=== PATIENT | male | born 1945 | race Caucasian/White ===

== ENCOUNTER 2018-10-21 06:54 | Day surgery (SDC) | payer MEDICARE, OTHER ==
[~2018-10-21] VITALS: Ht 185.4 cm; Wt 72.0 kg
[~2018-10-21 06:54] MED LIST: ACET325T14 PO; ASPI-498 PO; BUPIVACAINE/PF-EPI 0.5% 1:200K ONE; DIPH25CA61 PO; HEPARIN 1,000 UNITS/ML, 10ML ONE; HYDR-3240 PO; LOVA40TA2 PO; OMEP20TA9 PO; ONDA4TAB7 PO
[2018-10-21] MEDS ORDERED: LACTATED RINGERS 1,000 ML IV SCH (07:42)
[2018-10-21] MEDS ORDERED: LIDOCAINE-MPF 1%, 2ML INFIL ONE (08:00)
[2018-10-21] MEDS ORDERED: SUCCINYLCHOLINE 20 MG/ML, 10ML ONE (08:30)
[2018-10-21] MEDS ORDERED: ROCURONIUM 10MG/ML,5ML ONE (08:30)
[2018-10-21] MEDS ORDERED: FENTANYL PF 100 MCG/2ML ONE (08:30)
[2018-10-21] MEDS ORDERED: MIDAZOLAM 1 MG/ML, 2ML ONE (08:30)
[2018-10-21] MEDS ORDERED: ONDANSETRON 2MG/ML, 2ML ONE (09:12)
[2018-10-21] MEDS ORDERED: CEFAZOLIN 1,000 MG ONE (09:12)
[2018-10-21] MEDS ORDERED: PROPOFOL 10 MG/ML, 20ML ONE (09:12)
[2018-10-21] MEDS ORDERED: LABETALOL 5MG/ML, 20ML IV PRN (09:30)
[2018-10-21] MEDS ORDERED: MEPERIDINE/PF 25MG/0.5ML IVPush PRN (09:30)
[2018-10-21] MEDS ORDERED: LORazepam 2 MG/ML, 1ML IVPush PRN (09:30)
[2018-10-21] MEDS ORDERED: FENTANYL PF 100 MCG/2ML IV PRN (09:30)
[2018-10-21] MEDS ORDERED: OXYcodone 5 MG/5 ML ORAL.SOL UDC PO PRN (09:30)
[2018-10-21] MEDS ORDERED: METOCLOPRAMIDE 5 MG/ML, 2ML IV PRN (09:30)
[2018-10-21] MEDS ORDERED: HYDROmorphone 2 MG/ML, 1ML IVPush PRN (09:30)
[2018-10-21] MEDS ORDERED: OXYcodone 5 MG/5 ML ORAL.SOL UDC ONE (10:05)
== END 2018-10-21 11:35 | disposition home or self-care (01) ==
LOC: OUT 06:54 → MERGE 06:54 → OUT 11:35
PROVIDERS: ATTEND Surgery
DX: C85.90 Non-Hodgkin lymphoma, unspecified, unspecified site (principal); K21.9 Gastro-esophageal reflux disease without esophagitis; E78.00 Pure hypercholesterolemia, unspecified; F32.9 Major depressive disorder, single episode, unspecified; I25.2 Old myocardial infarction; E78.5 Hyperlipidemia, unspecified; Z98.890 Other specified postprocedural states; Z72.89 Other problems related to lifestyle; Z87.891 Personal history of nicotine dependence
CPT/HCPCS: 36561; 77001; C1788; J0330; J0690; J1644; J2250; J2405; J2704; J3010

== ENCOUNTER → 2018-10-22 | Outpatient (CLI) | payer MEDICARE, OTHER ==
[~2018-10-22] MED LIST changes: -BUPIVACAINE/PF-EPI 0.5% 1:200K ONE; -HEPARIN 1,000 UNITS/ML, 10ML ONE
== END | disposition home or self-care (01) ==
LOC: PETCFH 12:23
PROVIDERS: ATTEND Specialist
DX: R16.1 Splenomegaly, not elsewhere classified (principal); R91.8 Other nonspecific abnormal finding of lung field; C88.0 Waldenstrom macroglobulinemia
CPT/HCPCS: 78815; A9552

== ENCOUNTER → 2019-02-25 | Outpatient (CLI) | payer MEDICARE, OTHER | END | disposition home or self-care (01) | LOC: PETCFH 12:23 | PROVIDERS: ATTEND Specialist | DX: C88.0 Waldenstrom macroglobulinemia (principal); R59.0 Localized enlarged lymph nodes; R91.1 Solitary pulmonary nodule; M19.90 Unspecified osteoarthritis, unspecified site; N28.1 Cyst of kidney, acquired; K80.20 Calculus of gallbladder without cholecystitis without obstruction | CPT/HCPCS: 78815; A9552 ==

== ENCOUNTER 2019-04-10 10:25 | Outpatient (CLI) | payer MEDICARE, OTHER | END 2019-04-10 23:59 | disposition home or self-care (01) | LOC: PETCFH 10:25 | PROVIDERS: ATTEND Specialist | DX: C88.0 Waldenstrom macroglobulinemia (principal); J43.9 Emphysema, unspecified; N28.1 Cyst of kidney, acquired; K80.20 Calculus of gallbladder without cholecystitis without obstruction; N28.89 Other specified disorders of kidney and ureter; R91.1 Solitary pulmonary nodule | CPT/HCPCS: 78815; A9552 ==

== ENCOUNTER 2019-04-21 09:13 | Emergency (ER) | payer MEDICARE, OTHER ==
[~2019-04-21] VITALS: Ht 185.4 cm; Wt 68.5 kg
--- NOTE | 2019-04-21 09:33 | NUR ---
TO [facility] FROM LOBBY
[2019-04-21 09:34] LABS: BASOPHILS # (AUTO) 0.03 x10^3/uL (0-0.1); BASOPHILS % (AUTO) 1 % (0-1); EOSINOPHILS # (AUTO) 0.15 x10^3/uL (0-0.4); EOSINOPHILS % (AUTO) 3 % (1-7); LYMPHOCYTES # (AUTO) 0.54 x10^3/uL (1-3.4); LYMPHOCYTES % (AUTO) 10 % (22-44); MD NO; MEAN CORPUSCULAR HEMOGLOBIN 31.6 pg (27.5-34.5); MEAN CORPUSCULAR HGB CONC 33.1 g/dL (33.2-36.2); MEAN CORPUSCULAR VOLUME 95.4 fL (81-97); MEAN PLATELET VOLUME 8.4 fL (7.4-10.4); MONOCYTES # (AUTO) 0.35 x10^3/uL (0.2-0.8); MONOCYTES % (AUTO) 6 % (2-9); NEUTROPHILS # (AUTO) 4.44 x10^3/uL (1.8-6.8); NEUTROPHILS % (AUTO) 81 % (42-75); PLATELET COUNT 240 x10^3/uL (130-400); RED BLOOD COUNT 4.17 x10^6/uL (4.38-5.82); RED CELL DISTRIBUTION WIDTH 15.5 % (9.4-14.8)
[2019-04-21 09:45] LABS: ANION GAP 5 mmol/L (5-15); CALCIUM 9.5 mg/dL (8.5-10.1); CHLORIDE 108 mmol/L (98-107)
[2019-04-21 09:49] LABS: ALANINE AMINOTRANSFERASE 17 U/L (12-78); ALKALINE PHOSPHATASE 89 U/L (45-117); BILIRUBIN,TOTAL 1.3 mg/dL (0.2-1.0); TOTAL PROTEIN 7.8 g/dL (6.4-8.2)
[2019-04-21] MEDS ORDERED: HYDROmorphone 2 MG/ML, 1ML ONE (10:18)
[2019-04-21] MEDS ORDERED: ONDANSETRON 2MG/ML, 2ML ONE (10:18)
[2019-04-21] MEDS ORDERED: HYDROmorphone 1 MG/ML, 1ML INJ IV ONE (10:30)
[2019-04-21] MEDS ORDERED: ONDANSETRON 2MG/ML, 2ML IVPush ONE (10:30)
--- NOTE | 2019-04-21 11:35 | NUR ---
PT DENIES ABILITY TO PRODUCE UA AT THIS TIME. DR ANAYA TO BEDSIDE
[2019-04-21] MEDS ORDERED: HYDROcodone/APAP 10/325 MG TABLET ONE (11:44)
[2019-04-21 11:50] VITALS: BP 126/69
[2019-04-21] MEDS ORDERED: HYDROcodone/APAP 10/325 MG TABLET PO ONE (12:00)
== END 2019-04-21 12:08 | disposition home or self-care (01) ==
LOC: ED 10:38
DX: K86.9 Disease of pancreas, unspecified (principal); Z85.72 Personal history of non-Hodgkin lymphomas
CPT/HCPCS: 36415; 74021; 80053; 83690; 85025; 96374; 99284; J1170

== ENCOUNTER 2019-05-09 12:27 | Emergency (ER) | payer MEDICARE, OTHER ==
[~2019-05-09] VITALS: Ht 185.4 cm; Wt 64.0 kg
[2019-05-09 13:19] LABS: BASOPHILS # (AUTO) 0.02 x10^3/uL (0-0.1); BASOPHILS % (AUTO) 1 % (0-1); EOSINOPHILS # (AUTO) 0.11 x10^3/uL (0-0.4); EOSINOPHILS % (AUTO) 3 % (1-7); LYMPHOCYTES # (AUTO) 0.35 x10^3/uL (1-3.4); LYMPHOCYTES % (AUTO) 9 % (22-44); MD NO; MEAN CORPUSCULAR HEMOGLOBIN 31.7 pg (27.5-34.5); MEAN CORPUSCULAR VOLUME 96.2 fL (81-97); MEAN PLATELET VOLUME 8.8 fL (7.4-10.4); MONOCYTES # (AUTO) 0.32 x10^3/uL (0.2-0.8); MONOCYTES % (AUTO) 8 % (2-9); NEUTROPHILS # (AUTO) 3.25 x10^3/uL (1.8-6.8); NEUTROPHILS % (AUTO) 80 % (42-75); PLATELET COUNT 155 x10^3/uL (130-400); RED BLOOD COUNT 4.01 x10^6/uL (4.38-5.82); RED CELL DISTRIBUTION WIDTH 15.3 % (9.4-14.8)
[2019-05-09 13:31] LABS: ALANINE AMINOTRANSFERASE 14 U/L (12-78); ALBUMIN 3.6 g/dL (3.4-5.0); ANION GAP 8 mmol/L (5-15); CALCIUM 9.2 mg/dL (8.5-10.1); CHLORIDE 104 mmol/L (98-107); CREATININE 0.81 mg/dL (0.7-1.3)
[2019-05-09 13:33] LABS: ALKALINE PHOSPHATASE 81 U/L (45-117); BILIRUBIN,TOTAL 0.6 mg/dL (0.2-1.0); TOTAL PROTEIN 7.1 g/dL (6.4-8.2)
--- NOTE | 2019-05-09 14:01 | NUR ---
TO ROOM FROM LOBBY. NAD.
--- NOTE | 2019-05-09 14:05 | NUR ---
patient up to restroom to void ambulated w/out difficulty urine sample obtained-sent to lab
[2019-05-09] MEDS ORDERED: OXYcodone IR 5MG TABLET PO ONE ×2 (14:30→16:30)
[2019-05-09] MEDS ORDERED: HYDROmorphone 2 MG/ML, 1ML ONE ×2 (14:54→17:05)
[2019-05-09 14:56] LABS: MICROSCOPIC NOT IND
--- NOTE | 2019-05-09 14:56 | NUR ---
medicated per emar for epigastric pain radiating to back at 8/10 at bedside/placed on pox/ to monitor closely
[2019-05-09] MEDS ORDERED: HYDROmorphone 2 MG/ML, 1ML IV ONE ×2 (15:00→17:30)
--- NOTE | 2019-05-09 15:01 | NUR ---
to ct scan
[2019-05-09 15:04] LABS: CULTURE INDICATED? NO
[2019-05-09] MEDS ORDERED: OMNIPAQUE 350 MG/ML, 100ML BOTTLE ONE (15:16)
--- NOTE | 2019-05-09 15:26 | NUR ---
Patient back from ct scan, report pain medication reduced epigastric pain to 5/10 updated on estimated poc
--- NOTE | 2019-05-09 16:00 | NUR ---
With re-assessmentpatient reports pain worsening now 5-05/14 describes as sharp/dull in same area- to discuss further medication with provider vitals updated-wnl at bedside Patient updated with estimated poc
[2019-05-09] MEDS ORDERED: OXYC-432 PO (16:05)
--- NOTE | 2019-05-09 16:16 | NUR ---
food writer made provider aware than patient taking 3750mg of tylenol/day (percocet dosing)- to clarify with precribing md
[2019-05-09] MEDS ORDERED: OXYcodone IR 5MG TABLET ONE (16:27)
--- NOTE | 2019-05-09 16:44 | NUR ---
medicated per emar for epigastric pain at 07/15 updated on estimated poc
--- NOTE | 2019-05-09 17:23 | NUR ---
remedicated per emar for pain at 07/15 provider to bedside explaining findings/dispo plan
[2019-05-09 18:47] VITALS: BP 122/79
[2019-05-13] MEDS ORDERED: OXYC20TA2 PO (11:02)
== END 2019-05-09 18:49 | disposition home or self-care (01) ==
LOC: ED 14:07
DX: I71.4 Abdominal aortic aneurysm, without rupture (principal); K86.9 Disease of pancreas, unspecified; R59.1 Generalized enlarged lymph nodes; I82.502 Chronic embolism and thrombosis of unspecified deep veins of left lower extremity
CPT/HCPCS: 36415; 74177; 80053; 81003; 83690; 85025; 96374; 96376; 99284; J1170; Q9967

== ENCOUNTER 2019-05-15 07:07 | Day surgery (SDC) | payer MEDICARE, OTHER ==
[~2019-05-15] VITALS: Ht 182.9 cm; Wt 63.0 kg
[~2019-05-15 07:07] MED LIST changes: +OXYC-432 PO; +OXYC20TA2 PO
[2019-05-15] MEDS ORDERED: LACTATED RINGERS 1,000 ML IV SCH (07:18)
[2019-05-15 07:31] VITALS: BP 120/72
[2019-05-15] MEDS ORDERED: CHLORHEXIDINE 15 ML UDC ONE (08:09)
[2019-05-15] MEDS ORDERED: FENTANYL PF 100 MCG/2ML ONE ×2 (08:24→09:06)
[2019-05-15] MEDS ORDERED: PROPOFOL 10 MG/ML, 20ML ONE ×2 (08:44→09:11)
[2019-05-15] MEDS ORDERED: MEPERIDINE/PF 25MG/0.5ML IVPush PRN (09:00)
[2019-05-15] MEDS ORDERED: ONDANSETRON ODT 8 MG PO PRN (09:00)
[2019-05-15] MEDS ORDERED: hydrALAzine 20 MG/ML, 1ML IV PRN (09:00)
[2019-05-15] MEDS ORDERED: FENTANYL PF 100 MCG/2ML IV PRN (09:00)
[2019-05-15] MEDS ORDERED: ONDANSETRON 2MG/ML, 2ML IV PRN (09:00)
[2019-05-15] MEDS ORDERED: LABETALOL 5MG/ML, 20ML IV PRN (09:00)
[2019-05-15] MEDS ORDERED: PIPERACILLIN/TAZO/PMX 3.375GM 50 ML ONE (09:10)
[2019-05-15] MEDS ORDERED: MORPHINE SULFATE 4 MG/ML, 1ML ONE ×2 (10:00→10:30)
[2019-05-15] MEDS ORDERED: OXYcodone 5 MG/5 ML ORAL.SOL UDC ONE ×2 (10:00→10:39)
[2019-05-15] MEDS: OXYcodone 5 MG/5 ML ORAL.SOL UDC PO PRN ×2 (10:01→10:41)
[2019-05-15] MEDS: MORPHINE SULFATE 4 MG/ML, 1ML IVPush PRN ×4 (10:03→10:36)
[2019-05-15] MEDS ORDERED: HYDROmorphone 2 MG/ML, 1ML ONE ×2 (10:42→11:35)
[2019-05-15] MEDS: HYDROmorphone 2 MG/ML, 1ML IVPush PRN ×7 (10:44→11:55)
== END 2019-05-15 13:00 | disposition home or self-care (01) ==
LOC: OUT 07:07
PROVIDERS: ATTEND Internal Medicine Gastroenterology
DX: C25.0 Malignant neoplasm of head of pancreas (principal); C77.2 Secondary and unspecified malignant neoplasm of intra-abdominal lymph nodes; K29.80 Duodenitis without bleeding; K21.9 Gastro-esophageal reflux disease without esophagitis; E78.5 Hyperlipidemia, unspecified; I25.10 Atherosclerotic heart disease of native coronary artery without angina pectoris; I25.2 Old myocardial infarction; Z79.82 Long term (current) use of aspirin; Z79.899 Other long term (current) drug therapy; Z72.89 Other problems related to lifestyle; Z87.891 Personal history of nicotine dependence
CPT/HCPCS: 43239; 43242; 74018; 88172; 88173; 88177; 88305; 88307; 93005; J1170; J2270; J2543; J2704; J3010; J7120

== ENCOUNTER 2019-05-30 15:25 | Inpatient (IN) | payer MEDICARE, OTHER ==
[~2019-05-30] VITALS: Ht 185.4 cm; Wt 58.4 kg
--- NOTE | 2019-05-30 15:50 | NUR ---
TO ROOM FROM LOBBY. NAD.
[2019-05-30] MEDS ORDERED: SODIUM CHLORIDE 0.9% 1,000 ML IV ONE (16:19)
[2019-05-30] MEDS ORDERED: ONDANSETRON 2MG/ML, 2ML ONE (16:20)
[2019-05-30] MEDS ORDERED: MORPHINE SULFATE 4 MG/ML, 1ML ONE ×2 (16:21→16:36)
[2019-05-30] MEDS: MORPHINE SULFATE 4 MG/ML, 1ML IVPush PRN ×2 (16:25→16:44)
[2019-05-30] MEDS ORDERED: ONDANSETRON 2MG/ML, 2ML IVPush ONE (16:30)
[2019-05-30] MEDS ORDERED: SODIUM CHLORIDE 0.9% 1,000ML IVBOLUS ONE (16:30)
[2019-05-30] MEDS ORDERED: SODIUM CHLORIDE FLUSH 10ML SYR IVF ONE (16:30)
[2019-05-30 16:37] LABS: MEAN CORPUSCULAR HEMOGLOBIN 30.7 pg (27.5-34.5); MEAN CORPUSCULAR VOLUME 95.7 fL (81-97); MEAN PLATELET VOLUME 7.5 fL (7.4-10.4); PLATELET COUNT 404 x10^3/uL (130-400); RED BLOOD COUNT 3.78 x10^6/uL (4.38-5.82); RED CELL DISTRIBUTION WIDTH 14.9 % (9.4-14.8)
[2019-05-30 16:49] LABS: ALANINE AMINOTRANSFERASE 26 U/L (12-78); ALBUMIN 2.9 g/dL (3.4-5.0); ANION GAP 6 mmol/L (5-15); CALCIUM 8.6 mg/dL (8.5-10.1); CHLORIDE 100 mmol/L (98-107); CREATININE 0.73 mg/dL (0.7-1.3)
[2019-05-30 16:51] LABS: ALKALINE PHOSPHATASE 186 U/L (45-117); BILIRUBIN,TOTAL 0.7 mg/dL (0.2-1.0); TOTAL PROTEIN 6.6 g/dL (6.4-8.2)
[2019-05-30 17:00] LABS: ACETONE, SERUM Negative (Negative)
[2019-05-30 17:23] LABS: MD YES
[2019-05-30 17:26] LABS: BAND#(MANUAL) 1.77 x10^3/uL; BANDS%(MANUAL) 29 % (0-7); LYMPH#(MANUAL) 0.43 x10^3/uL (1-3.4); LYMPHS% (MANUAL) 7 % (22-44); MONOS#(MANUAL) 0.67 x10^3/uL (0.3-2.7); MONOS% (MANUAL) 11 % (2-9); SEG#(MANUAL) 3.23 x10^3/uL (1.8-6.8); SEGS% (MANUAL) 53 % (42-75)
[2019-05-30 17:27] LABS: <PLATELET ESTIMATE> ADEQUATE; <PLT MORPHOLOGY> NORMAL PLT MORPH; <RBC MORPHOLOGY> NORMAL
[2019-05-30 17:37] LABS: INTERNATIONAL NORMALIZED RATIO 1.15 (0.93-1.1)
--- NOTE | 2019-05-30 17:44 | NUR ---
PT REPORTS FEELING BETTER IV INFUSING WELL PT AWARE OF ADMIT
[2019-05-30] MEDS ORDERED: FENTANYL PF 100 MCG/2ML IVPush PRN (18:30)
[2019-05-30] MEDS ORDERED: FENTANYL PF 100 MCG/2ML ONE (18:35)
[2019-05-30] MEDS ORDERED: SODIUM CHLORIDE FLUSH 10ML SYR IVF PRN (19:00)
[2019-05-30] MEDS ORDERED: HYDROmorphone 2 MG/ML, 1ML ONE (19:15)
[2019-05-30] MEDS ORDERED: HYDROmorphone 1 MG/ML, 1ML INJ IV ONE (19:30)
[2019-05-30] MEDS ORDERED: HYDROmorphone 2 MG/ML, 1ML IV ONE (20:00)
[2019-05-30 20:05] VITALS: BP 138/79
[2019-05-30 20:05] LABS: CULTURE INDICATED? YES; MICROSCOPIC INDICATED
[2019-05-30 20:29] VITALS: BP 138/79
[2019-05-30] MEDS ORDERED: ONDANSETRON ODT 4 MG PO PRN (21:30)
[2019-05-30] MEDS ORDERED: METOCLOPRAMIDE 5 MG/ML, 2ML IVPush PRN (21:30)
[2019-05-30] MEDS ORDERED: ACETAMINOPHEN 325 MG TABLET PO PRN (21:30)
[2019-05-30] MEDS ORDERED: LIDODERM 5% PATCH TD PRN (21:30)
[2019-05-30] MEDS ORDERED: ENALAPRILAT 1.25 MG/ML, 2ML IVPush PRN (21:30)
[2019-05-30] MEDS ORDERED: LIDODERM REMOVE PATCH NOTE XX SCH (22:00)
[2019-05-30] MEDS: HYDROmorphone 2 MG/ML, 1ML IVPush PRN (22:02)
[2019-05-30] MEDS: LOVASTATIN 40 MG TABLET PO SCH (22:07)
[2019-05-30] MEDS: ENOXAPARIN 40 MG/0.4 ML SQ SCH (22:08)
[2019-05-30] MEDS: OXYcodone/APAP 10/325MG TABLET PO PRN (23:14)
[2019-05-31 00:13] VITALS: BP 125/80
[2019-05-31] MEDS: HYDROmorphone 2 MG/ML, 1ML IVPush PRN ×7 (00:59→23:19)
[2019-05-31 04:31] LABS: MEAN CORPUSCULAR HEMOGLOBIN 31.8 pg (27.5-34.5); MEAN CORPUSCULAR HGB CONC 32.9 g/dL (33.2-36.2); MEAN CORPUSCULAR VOLUME 96.6 fL (81-97); MEAN PLATELET VOLUME 8.1 fL (7.4-10.4); PLATELET COUNT 347 x10^3/uL (130-400); RED BLOOD COUNT 3.47 x10^6/uL (4.38-5.82); RED CELL DISTRIBUTION WIDTH 14.4 % (9.4-14.8)
[2019-05-31 04:42] LABS: ANION GAP 5 mmol/L (5-15); CALCIUM 8.2 mg/dL (8.5-10.1); CHLORIDE 104 mmol/L (98-107); CREATININE 0.56 mg/dL (0.7-1.3)
[2019-05-31 04:52] LABS: MD YES
[2019-05-31 04:55] LABS: <RBC MORPHOLOGY> NORMAL; BAND#(MANUAL) 0.31 x10^3/uL; BANDS%(MANUAL) 6 % (0-7); EOS#(MANUAL) 0.05 x10^3/uL (0.0-0.4); EOS% (MANUAL) 1 % (1-7); LYMPH#(MANUAL) 0.26 x10^3/uL (1-3.4); LYMPHS% (MANUAL) 5 % (22-44); MONOS#(MANUAL) 0.73 x10^3/uL (0.3-2.7); MONOS% (MANUAL) 14 % (2-9); SEG#(MANUAL) 3.85 x10^3/uL (1.8-6.8); SEGS% (MANUAL) 74 % (42-75)
[2019-05-31 04:56] LABS: <PLATELET ESTIMATE> ADEQUATE; <PLT MORPHOLOGY> NORMAL PLT MORPH
[2019-05-31] MEDS: OXYcodone/APAP 10/325MG TABLET PO PRN ×4 (06:35→18:43)
[2019-05-31 07:00] VITALS: BP_SYST 114; BP_SYST 171; BP_DIAS 65; BP_DIAS 90
[2019-05-31] MEDS: LACTOBACILLUS CHEW TABLET PO SCH ×3 (07:58→20:22)
[2019-05-31] MEDS: OMEPRAZOLE 20 MG CAPSULE.DR PO SCH (07:58)
[2019-05-31] MEDS: DRONABINOL 2.5 MG CAPSULE PO SCH ×2 (07:59→08:17)
[2019-05-31] MEDS: SODIUM CHLORIDE 0.9% 1,000 ML IV SCH (07:59)
[2019-05-31] MEDS: ACETAMINOPHEN 325 MG TABLET PO SCH ×3 (07:59→20:22)
[2019-05-31] MEDS: LIDODERM REMOVE PATCH NOTE XX SCH (10:00)
[2019-05-31 13:00] VITALS: BP 106/58
[2019-05-31] MEDS: DOCUSATE 100 MG CAPSULE PO PRN (16:19)
[2019-05-31] MEDS: HYOSCYAMINE 0.125 MG TAB.SUBL SL PRN (16:19)
[2019-05-31 18:47] VITALS: BP 115/65
[2019-05-31] MEDS: LOVASTATIN 40 MG TABLET PO SCH (20:21)
[2019-05-31] MEDS: ENOXAPARIN 40 MG/0.4 ML SQ SCH (20:22)
[2019-06-01 02:00] VITALS: BP 112/62
[2019-06-01] MEDS: HYDROmorphone 2 MG/ML, 1ML IVPush PRN ×7 (02:38→23:02)
[2019-06-01] MEDS: SODIUM CHLORIDE 0.9% 1,000 ML IV SCH (02:39)
[2019-06-01] MEDS: ACETAMINOPHEN 325 MG TABLET PO SCH ×4 (02:39→23:04)
[2019-06-01 04:59] LABS: ANION GAP 8 mmol/L (5-15); CALCIUM 8.4 mg/dL (8.5-10.1); CHLORIDE 104 mmol/L (98-107); CREATININE 0.53 mg/dL (0.7-1.3)
[2019-06-01 07:20] VITALS: BP 122/69
[2019-06-01] MEDS ORDERED: POTASSIUM CHLORIDE 20 MEQ TAB.ER.PRT PO ONE (07:30)
[2019-06-01] MEDS: HYOSCYAMINE 0.125 MG TAB.SUBL SL PRN ×2 (07:33→11:48)
[2019-06-01] MEDS: DRONABINOL 2.5 MG CAPSULE PO SCH ×2 (08:22→20:06)
[2019-06-01] MEDS: OXYcodone/APAP 10/325MG TABLET PO PRN ×2 (08:22→14:42)
[2019-06-01] MEDS: LACTOBACILLUS CHEW TABLET PO SCH ×3 (08:22→20:06)
[2019-06-01] MEDS: OMEPRAZOLE 20 MG CAPSULE.DR PO SCH (08:29)
[2019-06-01] MEDS: DOCUSATE 100 MG CAPSULE PO PRN (08:31)
[2019-06-01] MEDS: LIDODERM REMOVE PATCH NOTE XX SCH (10:00)
[2019-06-01 13:22] VITALS: BP 116/76
[2019-06-01] MEDS ORDERED: OMNIPAQUE 350 MG/ML, 100ML BOTTLE ONE (16:59)
[2019-06-01] MEDS: OXYcodone IR 5MG TABLET PO PRN ×2 (17:40→21:27)
[2019-06-01 19:29] VITALS: BP 135/74
[2019-06-01] MEDS: LOVASTATIN 40 MG TABLET PO SCH (20:06)
[2019-06-01] MEDS: ENOXAPARIN 40 MG/0.4 ML SQ SCH (21:27)
[2019-06-02] MEDS: SODIUM CHLORIDE 0.9% 1,000 ML IV SCH ×2 (01:23→21:47)
[2019-06-02] MEDS: OXYcodone IR 5MG TABLET PO PRN ×2 (01:23→16:42)
[2019-06-02] MEDS: HYDROmorphone 2 MG/ML, 1ML IVPush PRN ×4 (02:05→21:40)
[2019-06-02] MEDS: TEMAZEPAM 15 MG CAPSULE PO PRN ×2 (02:12→21:39)
[2019-06-02] MEDS: DOCUSATE 100 MG CAPSULE PO PRN ×2 (02:18→21:40)
[2019-06-02 02:25] VITALS: BP 114/63
[2019-06-02 04:52] LABS: ANION GAP 7 mmol/L (5-15); CALCIUM 8.4 mg/dL (8.5-10.1); CHLORIDE 103 mmol/L (98-107)
[2019-06-02] MEDS: ACETAMINOPHEN 325 MG TABLET PO SCH ×3 (05:40→21:39)
[2019-06-02 07:23] VITALS: BP 135/69
[2019-06-02] MEDS ORDERED: KETOROLAC 30 MG/1 ML IVPush SCH (08:00)
[2019-06-02] MEDS: DRONABINOL 2.5 MG CAPSULE PO SCH ×2 (09:00→20:16)
[2019-06-02] MEDS: KETOROLAC 30 MG/1 ML IVPush PRN ×2 (09:23→20:16)
[2019-06-02] MEDS: LACTOBACILLUS CHEW TABLET PO SCH ×3 (09:23→20:16)
[2019-06-02] MEDS: OMEPRAZOLE 20 MG CAPSULE.DR PO SCH (09:23)
[2019-06-02] MEDS: LIDODERM REMOVE PATCH NOTE XX SCH (10:00)
[2019-06-02] MEDS: DICYCLOMINE 10 MG CAPSULE PO SCH ×3 (11:00→20:16)
[2019-06-02] MEDS ORDERED: SINCALIDE (KINEVAC) 5 MCG ONE (12:46)
[2019-06-02 14:35] VITALS: BP 120/76
[2019-06-02] MEDS: ISOSORBIDE MONONITRATE ER 30 MG TABLET PO SCH (15:46)
[2019-06-02 19:01] VITALS: BP 99/65
[2019-06-02] MEDS: LOVASTATIN 40 MG TABLET PO SCH (20:16)
[2019-06-02] MEDS: ENOXAPARIN 40 MG/0.4 ML SQ SCH (21:48)
[2019-06-03 02:07] VITALS: BP 97/60
[2019-06-03] MEDS: HYDROmorphone 2 MG/ML, 1ML IVPush PRN ×5 (02:11→20:45)
[2019-06-03 02:16] VITALS: BP 109/66
[2019-06-03] MEDS: ACETAMINOPHEN 325 MG TABLET PO SCH ×4 (03:30→23:53)
[2019-06-03] MEDS: DICYCLOMINE 10 MG CAPSULE PO SCH (06:42)
[2019-06-03] MEDS: ASPIRIN 81 MG TABLET EC PO SCH (06:42)
[2019-06-03 07:15] VITALS: BP 109/61
[2019-06-03] MEDS: LIDODERM REMOVE PATCH NOTE XX SCH (10:00)
[2019-06-03] MEDS: OMEPRAZOLE 20 MG CAPSULE.DR PO SCH (12:15)
[2019-06-03] MEDS: LACTOBACILLUS CHEW TABLET PO SCH ×3 (12:16→20:45)
[2019-06-03] MEDS: DRONABINOL 2.5 MG CAPSULE PO SCH ×2 (12:16→20:45)
[2019-06-03] MEDS: ISOSORBIDE MONONITRATE ER 30 MG TABLET PO SCH (12:16)
[2019-06-03 12:55] VITALS: BP 90/52
[2019-06-03] MEDS: KETOROLAC 30 MG/1 ML IVPush PRN (14:46)
[2019-06-03] MEDS: OXYcodone IR 5MG TABLET PO PRN (18:08)
[2019-06-03 19:36] VITALS: BP 100/61
[2019-06-03] MEDS: NORTRIPTYLINE 25 MG CAPSULE PO SCH (20:45)
[2019-06-03] MEDS: TEMAZEPAM 15 MG CAPSULE PO PRN (20:45)
[2019-06-03] MEDS: LOVASTATIN 40 MG TABLET PO SCH (20:45)
[2019-06-03] MEDS: ENOXAPARIN 40 MG/0.4 ML SQ SCH (20:46)
[2019-06-03] MEDS: SENNA/DOCUSATE TABLET PO SCH (20:46)
[2019-06-04 01:13] VITALS: BP 119/64
[2019-06-04] MEDS: HYDROmorphone 2 MG/ML, 1ML IVPush PRN ×9 (01:20→23:08)
[2019-06-04] MEDS: ACETAMINOPHEN 325 MG TABLET PO SCH ×4 (04:19→23:08)
[2019-06-04] MEDS: KETOROLAC 30 MG/1 ML IVPush PRN ×3 (04:19→18:49)
[2019-06-04] MEDS: ASPIRIN 81 MG TABLET EC PO SCH (04:19)
[2019-06-04 06:27] VITALS: BP 122/74
[2019-06-04] MEDS: DRONABINOL 2.5 MG CAPSULE PO SCH ×2 (08:11→19:46)
[2019-06-04] MEDS: ISOSORBIDE MONONITRATE ER 30 MG TABLET PO SCH (08:12)
[2019-06-04] MEDS: LACTOBACILLUS CHEW TABLET PO SCH ×3 (08:12→19:45)
[2019-06-04] MEDS: OMEPRAZOLE 20 MG CAPSULE.DR PO SCH ×2 (08:12→08:13)
[2019-06-04] MEDS ORDERED: BUPIVACAINE/PF 0.25% ONE (12:14)
[2019-06-04] MEDS ORDERED: TRIAMCINOLONE ACETONIDE 40 MG/ML, 1ML ONE (12:14)
[2019-06-04] MEDS ORDERED: ETHYL ALCOHOL 98%, 5 ML ONE (12:14)
[2019-06-04] MEDS ORDERED: PROPOFOL 10 MG/ML, 20ML ONE (12:22)
[2019-06-04] MEDS ORDERED: FENTANYL PF 100 MCG/2ML ONE (13:02)
[2019-06-04] MEDS: FENTANYL PF 100 MCG/2ML IV PRN ×3 (13:03→13:15)
[2019-06-04] MEDS ORDERED: HYDROmorphone 2 MG/ML, 1ML ONE (13:18)
[2019-06-04 19:44] VITALS: BP 124/66
[2019-06-04] MEDS: LOVASTATIN 40 MG TABLET PO SCH (19:45)
[2019-06-04] MEDS: ENOXAPARIN 40 MG/0.4 ML SQ SCH (19:45)
[2019-06-04] MEDS: NORTRIPTYLINE 25 MG CAPSULE PO SCH (19:46)
[2019-06-04] MEDS: SENNA/DOCUSATE TABLET PO SCH (19:46)
[2019-06-05 03:16] VITALS: BP 111/64
[2019-06-05] MEDS: HYDROmorphone 2 MG/ML, 1ML IVPush PRN ×5 (03:59→23:05)
[2019-06-05] MEDS: ASPIRIN 81 MG TABLET EC PO SCH (06:20)
[2019-06-05] MEDS: OXYcodone IR 5MG TABLET PO PRN ×2 (06:20→13:02)
[2019-06-05] MEDS: ACETAMINOPHEN 325 MG TABLET PO SCH ×4 (06:20→19:50)
[2019-06-05 06:56] VITALS: BP 120/72
[2019-06-05] MEDS: DRONABINOL 2.5 MG CAPSULE PO SCH ×2 (09:25→19:49)
[2019-06-05] MEDS: LACTOBACILLUS CHEW TABLET PO SCH ×3 (09:25→19:43)
[2019-06-05] MEDS: ISOSORBIDE MONONITRATE ER 30 MG TABLET PO SCH (09:25)
[2019-06-05] MEDS: OMEPRAZOLE 20 MG CAPSULE.DR PO SCH (09:25)
[2019-06-05 13:30] VITALS: BP 97/61
[2019-06-05] MEDS: ENOXAPARIN 60 MG/0.6 ML SQ SCH (14:35)
[2019-06-05] MEDS: KETOROLAC 30 MG/1 ML IVPush PRN (16:37)
[2019-06-05 19:45] VITALS: BP 139/80
[2019-06-05] MEDS: SENNA/DOCUSATE TABLET PO SCH (19:49)
[2019-06-05] MEDS: LOVASTATIN 40 MG TABLET PO SCH (19:49)
[2019-06-05] MEDS: NORTRIPTYLINE 25 MG CAPSULE PO SCH (19:49)
[2019-06-06 01:41] VITALS: BP 146/84
[2019-06-06] MEDS: OXYcodone IR 5MG TABLET PO PRN ×4 (01:41→19:29)
[2019-06-06] MEDS: ENOXAPARIN 60 MG/0.6 ML SQ SCH ×2 (01:41→14:56)
[2019-06-06] MEDS: HYDROmorphone 2 MG/ML, 1ML IVPush PRN ×7 (03:10→21:24)
[2019-06-06 05:48] LABS: MEAN CORPUSCULAR HEMOGLOBIN 31.3 pg (27.5-34.5); MEAN CORPUSCULAR HGB CONC 32.9 g/dL (33.2-36.2); MEAN CORPUSCULAR VOLUME 94.9 fL (81-97); MEAN PLATELET VOLUME 8.1 fL (7.4-10.4); PLATELET COUNT 208 x10^3/uL (130-400); RED BLOOD COUNT 3.12 x10^6/uL (4.38-5.82); RED CELL DISTRIBUTION WIDTH 15.6 % (9.4-14.8)
[2019-06-06 05:59] LABS: CALCIUM 8.6 mg/dL (8.5-10.1); CHLORIDE 103 mmol/L (98-107)
[2019-06-06] MEDS: ASPIRIN 81 MG TABLET EC PO SCH (06:00)
[2019-06-06] MEDS: ACETAMINOPHEN 325 MG TABLET PO SCH ×3 (06:00→17:22)
[2019-06-06 06:01] LABS: ALANINE AMINOTRANSFERASE 15 U/L (12-78); ALBUMIN 2.7 g/dL (3.4-5.0); ALKALINE PHOSPHATASE 143 U/L (45-117); ANION GAP 5 mmol/L (5-15); BILIRUBIN,TOTAL 0.6 mg/dL (0.2-1.0); CREATININE 0.45 mg/dL (0.7-1.3); TOTAL PROTEIN 6.2 g/dL (6.4-8.2)
[2019-06-06 06:16] LABS: MD YES
[2019-06-06 06:19] LABS: ANISOCYTOSIS 1+; BAND#(MANUAL) 0.32 x10^3/uL; BANDS%(MANUAL) 9 % (0-7); LYMPH#(MANUAL) 0.25 x10^3/uL (1-3.4); LYMPHS% (MANUAL) 7 % (22-44); MONOS#(MANUAL) 0.28 x10^3/uL (0.3-2.7); MONOS% (MANUAL) 8 % (2-9); SEG#(MANUAL) 2.66 x10^3/uL (1.8-6.8); SEGS% (MANUAL) 76 % (42-75)
[2019-06-06 06:20] LABS: <PLATELET ESTIMATE> ADEQUATE; <PLT MORPHOLOGY> NORMAL PLT MORPH
[2019-06-06] MEDS ORDERED: POTASSIUM CHLORIDE 20 MEQ TAB.ER.PRT PO ONE (07:00)
[2019-06-06 07:03] VITALS: BP 134/79
[2019-06-06 07:06] VITALS: BP 121/70
[2019-06-06] MEDS ORDERED: FENTANYL 25 MCG PATCH TD SCH (09:00)
[2019-06-06] MEDS: OMEPRAZOLE 20 MG CAPSULE.DR PO SCH (09:13)
[2019-06-06] MEDS: ISOSORBIDE MONONITRATE ER 30 MG TABLET PO SCH (09:13)
[2019-06-06] MEDS: DRONABINOL 2.5 MG CAPSULE PO SCH ×2 (09:13→19:28)
[2019-06-06] MEDS: LACTOBACILLUS CHEW TABLET PO SCH ×3 (09:13→19:28)
[2019-06-06 12:31] VITALS: BP 108/64
[2019-06-06] MEDS: DOCUSATE 100 MG CAPSULE PO PRN (14:56)
[2019-06-06 18:49] VITALS: BP 112/70
[2019-06-06] MEDS: LOVASTATIN 40 MG TABLET PO SCH (19:28)
[2019-06-06] MEDS: SENNA/DOCUSATE TABLET PO SCH (19:28)
[2019-06-06] MEDS: NORTRIPTYLINE 25 MG CAPSULE PO SCH (19:29)
[2019-06-07] MEDS: OXYcodone IR 5MG TABLET PO PRN ×3 (00:04→10:36)
[2019-06-07 00:54] VITALS: BP 144/79
[2019-06-07] MEDS: HYDROmorphone 2 MG/ML, 1ML IVPush PRN ×7 (00:59→23:28)
[2019-06-07] MEDS: ENOXAPARIN 60 MG/0.6 ML SQ SCH ×2 (03:57→16:34)
[2019-06-07] MEDS: ACETAMINOPHEN 325 MG TABLET PO SCH ×5 (05:50→23:28)
[2019-06-07] MEDS: ASPIRIN 81 MG TABLET EC PO SCH (05:50)
[2019-06-07 06:14] LABS: MEAN CORPUSCULAR HEMOGLOBIN 32.2 pg (27.5-34.5); MEAN CORPUSCULAR HGB CONC 33.5 g/dL (33.2-36.2); MEAN CORPUSCULAR VOLUME 95.9 fL (81-97); MEAN PLATELET VOLUME 8.6 fL (7.4-10.4); PLATELET COUNT 225 x10^3/uL (130-400); RED BLOOD COUNT 3.17 x10^6/uL (4.38-5.82); RED CELL DISTRIBUTION WIDTH 15.7 % (9.4-14.8)
[2019-06-07 06:43] VITALS: BP 118/71
[2019-06-07 06:48] LABS: MD YES
[2019-06-07 06:50] LABS: BAND#(MANUAL) 0.44 x10^3/uL; BANDS%(MANUAL) 12 % (0-7); EOS#(MANUAL) 0.04 x10^3/uL (0.0-0.4); EOS% (MANUAL) 1 % (1-7); LYMPH#(MANUAL) 0.07 x10^3/uL (1-3.4); LYMPHS% (MANUAL) 2 % (22-44); MONOS#(MANUAL) 0.37 x10^3/uL (0.3-2.7); MONOS% (MANUAL) 10 % (2-9); REACTIVE LYMPHS # (MANUAL) 0.04 x10^3/uL (0-0); REACTIVE LYMPHS % (MANUAL) 1 % (0-0); SEG#(MANUAL) 2.74 x10^3/uL (1.8-6.8); SEGS% (MANUAL) 74 % (42-75)
[2019-06-07 06:51] LABS: <PLATELET ESTIMATE> ADEQUATE; <PLT MORPHOLOGY> NORMAL PLT MORPH; ANISOCYTOSIS 1+
[2019-06-07] MEDS: LACTOBACILLUS CHEW TABLET PO SCH ×3 (09:08→19:35)
[2019-06-07] MEDS: ISOSORBIDE MONONITRATE ER 30 MG TABLET PO SCH (09:08)
[2019-06-07] MEDS: DRONABINOL 2.5 MG CAPSULE PO SCH ×2 (09:08→19:35)
[2019-06-07] MEDS: OMEPRAZOLE 20 MG CAPSULE.DR PO SCH ×2 (09:08→19:30)
[2019-06-07] MEDS ORDERED: FENTANYL 25 MCG PATCH ONE (10:27)
[2019-06-07] MEDS: D5%-0.45NACL+KCL 20MEQ 1,000 ML IV SCH ×2 (10:36→22:39)
[2019-06-07] MEDS ORDERED: FENTANYL 25 MCG PATCH TD SCH (11:00)
[2019-06-07] MEDS ORDERED: FENTANYL 50 MCG PATCH TD SCH (11:00)
[2019-06-07] MEDS ORDERED: FENTANYL REMOVE PATCH NOTE XX SCH (11:00)
[2019-06-07 13:24] VITALS: BP 113/65
[2019-06-07] MEDS: morphine SULFATE ORAL.CONC 20 MG/ML PO PRN ×3 (14:34→22:38)
[2019-06-07 18:42] VITALS: BP 129/68
[2019-06-07] MEDS: SENNA/DOCUSATE TABLET PO SCH (19:35)
[2019-06-07] MEDS: NORTRIPTYLINE 25 MG CAPSULE PO SCH (19:35)
[2019-06-07] MEDS: LOVASTATIN 40 MG TABLET PO SCH (19:35)
[2019-06-08 00:12] VITALS: BP 125/76
[2019-06-08] MEDS: OMEPRAZOLE 20 MG CAPSULE.DR PO SCH (05:09)
[2019-06-08] MEDS: ASPIRIN 81 MG TABLET EC PO SCH (05:09)
[2019-06-08] MEDS: ENOXAPARIN 60 MG/0.6 ML SQ SCH ×2 (05:09→17:52)
[2019-06-08] MEDS: morphine SULFATE ORAL.CONC 20 MG/ML PO PRN ×3 (05:09→19:46)
[2019-06-08] MEDS: ACETAMINOPHEN 325 MG TABLET PO SCH ×3 (05:09→19:46)
[2019-06-08 05:30] LABS: MEAN CORPUSCULAR HEMOGLOBIN 32.3 pg (27.5-34.5); MEAN CORPUSCULAR HGB CONC 33.7 g/dL (33.2-36.2); MEAN CORPUSCULAR VOLUME 95.9 fL (81-97); PLATELET COUNT 225 x10^3/uL (130-400); RED BLOOD COUNT 3.08 x10^6/uL (4.38-5.82); RED CELL DISTRIBUTION WIDTH 15.7 % (9.4-14.8)
[2019-06-08 05:44] LABS: ANION GAP 7 mmol/L (5-15); CALCIUM 8.5 mg/dL (8.5-10.1); CHLORIDE 104 mmol/L (98-107); CREATININE 0.49 mg/dL (0.7-1.3)
[2019-06-08 06:07] LABS: MD YES
[2019-06-08 06:09] LABS: BAND#(MANUAL) 0.17 x10^3/uL; BANDS%(MANUAL) 6 % (0-7); EOS#(MANUAL) 0.06 x10^3/uL (0.0-0.4); EOS% (MANUAL) 2 % (1-7); LYMPH#(MANUAL) 0.25 x10^3/uL (1-3.4); LYMPHS% (MANUAL) 9 % (22-44); MONOS#(MANUAL) 0.22 x10^3/uL (0.3-2.7); MONOS% (MANUAL) 8 % (2-9); SEGS% (MANUAL) 75 % (42-75)
[2019-06-08 06:10] LABS: ANISOCYTOSIS 1+; ECHINOCYTES 1+; OVALOCYTES 1+
[2019-06-08 06:11] LABS: <PLATELET ESTIMATE> ADEQUATE; <PLT MORPHOLOGY> NORMAL PLT MORPH
[2019-06-08 06:30] VITALS: BP 125/67
[2019-06-08] MEDS ORDERED: POTASSIUM CHLORIDE 20 MEQ TAB.ER.PRT PO ONE (07:30)
[2019-06-08] MEDS: DRONABINOL 2.5 MG CAPSULE PO SCH ×2 (08:39→19:46)
[2019-06-08] MEDS: ISOSORBIDE MONONITRATE ER 30 MG TABLET PO SCH (08:39)
[2019-06-08] MEDS: LACTOBACILLUS CHEW TABLET PO SCH ×3 (08:39→19:46)
[2019-06-08] MEDS: SODIUM CHLORIDE 0.9% 1,000 ML IV SCH (08:40)
[2019-06-08] MEDS: HYDROmorphone 2 MG/ML, 1ML IVPush PRN ×4 (10:57→21:06)
[2019-06-08] MEDS ORDERED: ACET325T26 PO (12:57)
[2019-06-08] MEDS ORDERED: NORT25CA78 PO (12:57)
[2019-06-08] MEDS ORDERED: MORP100S3 PO (12:57)
[2019-06-08] MEDS ORDERED: SENN-193 PO (12:57)
[2019-06-08] MEDS ORDERED: ACID1TAB7 PO (12:57)
[2019-06-08] MEDS ORDERED: ASPI81TA45 PO (12:57)
[2019-06-08] MEDS ORDERED: ONDA4TAB13 PO (12:57)
[2019-06-08] MEDS ORDERED: DRON2.5C2 PO (12:57)
[2019-06-08] MEDS ORDERED: LORA2VIA6 PO (12:57)
[2019-06-08] MEDS ORDERED: FENT1PAT76 TD (12:57)
[2019-06-08 14:55] VITALS: BP 122/61
[2019-06-08 19:31] VITALS: BP 116/73
[2019-06-08] MEDS: LOVASTATIN 40 MG TABLET PO SCH (19:46)
[2019-06-08] MEDS: SENNA/DOCUSATE TABLET PO SCH (19:46)
[2019-06-08] MEDS: NORTRIPTYLINE 25 MG CAPSULE PO SCH (19:46)
[2019-06-09] MEDS: ACETAMINOPHEN 325 MG TABLET PO SCH ×3 (01:22→12:24)
[2019-06-09] MEDS: SODIUM CHLORIDE 0.9% 1,000 ML IV SCH (01:22)
[2019-06-09 01:37] VITALS: BP 134/86
[2019-06-09] MEDS: HYDROmorphone 2 MG/ML, 1ML IVPush PRN ×4 (01:49→12:24)
[2019-06-09] MEDS: ASPIRIN 81 MG TABLET EC PO SCH (04:50)
[2019-06-09] MEDS: OMEPRAZOLE 20 MG CAPSULE.DR PO SCH (04:50)
[2019-06-09] MEDS: ENOXAPARIN 60 MG/0.6 ML SQ SCH (04:51)
[2019-06-09 05:00] LABS: ANION GAP 8 mmol/L (5-15); CALCIUM 8.6 mg/dL (8.5-10.1); CHLORIDE 104 mmol/L (98-107)
[2019-06-09] MEDS: morphine SULFATE ORAL.CONC 20 MG/ML PO PRN ×2 (06:40→13:47)
[2019-06-09] MEDS ORDERED: MAGNESIUM SULFATE PMX 2GM/50ML 50 ML IV ONE (07:30)
[2019-06-09] MEDS ORDERED: POTASSIUM CHLORIDE 20 MEQ TAB.ER.PRT PO ONE (07:30)
[2019-06-09 07:39] VITALS: BP 130/78
[2019-06-09] MEDS: LACTOBACILLUS CHEW TABLET PO SCH (08:41)
[2019-06-09] MEDS: DRONABINOL 2.5 MG CAPSULE PO SCH (08:42)
[2019-06-09] MEDS: ISOSORBIDE MONONITRATE ER 30 MG TABLET PO SCH (08:42)
[2019-06-09] MEDS ORDERED: FENTANYL 25 MCG PATCH TD SCH (09:00)
[2019-06-09 12:34] VITALS: BP 129/78
== END 2019-06-09 14:00 | disposition hospice, home (50) | DRG 435 ==
LOC: ED 16:43 → EDIP 18:40 → 3NW 20:03
PROVIDERS: ADMIT Family Medicine; ATTEND Family Medicine
PROC: BD47ZZZ Ultrasonography of Gastrointestinal Tract (ICD-10-PCS; 2019-06-04)
PROC: 3E0T3GC Introduction of Other Therapeutic Substance into Peripheral Nerves and Plexi, Percutaneous Approach (ICD-10-PCS; principal; 2019-06-04 12:15)
DX: C25.9 Malignant neoplasm of pancreas, unspecified (principal); E43 Unspecified severe protein-calorie malnutrition; K55.029 Acute infarction of small intestine, extent unspecified; Z68.1 Body mass index [BMI] 19.9 or less, adult; C85.90 Non-Hodgkin lymphoma, unspecified, unspecified site; K80.10 Calculus of gallbladder with chronic cholecystitis without obstruction; K21.9 Gastro-esophageal reflux disease without esophagitis; I25.10 Atherosclerotic heart disease of native coronary artery without angina pectoris; I10 Essential (primary) hypertension; C88.0 Waldenstrom macroglobulinemia; D53.9 Nutritional anemia, unspecified; E78.5 Hyperlipidemia, unspecified; D72.825 Bandemia; E86.0 Dehydration; E87.6 Hypokalemia; G89.3 Neoplasm related pain (acute) (chronic); R62.7 Adult failure to thrive; Z72.0 Tobacco use; R91.1 Solitary pulmonary nodule; Z80.1 Family history of malignant neoplasm of trachea, bronchus and lung; Z82.49 Family history of ischemic heart disease and other diseases of the circulatory system; I25.2 Old myocardial infarction; Z83.3 Family history of diabetes mellitus; Z92.21 Personal history of antineoplastic chemotherapy; Z95.5 Presence of coronary angioplasty implant and graft
CPT/HCPCS: 36415; 71045; 74174; 78227; 80048; 80053; 81001; 82010; 83605; 83690; 83735; 84145; 85025; 85610; 85730; 87040; 87086; 93005; 96361; 96374; 96375; 99285; G0378; J1170; J1650; J1885; J2405; J2704; J3010; J3301; J3490; Q0167; Q9967; A9537; C9898; J2270; J2805; J3475; J3480; J7030